=== PATIENT | male | born 1985 | race African-American/Black ===

== ENCOUNTER 2019-04-05 13:47 | Emergency (ER) | payer MEDICAID, OTHER ==
[~2019-04-05] VITALS: Ht 182.9 cm; Wt 71.2 kg
[~2019-04-05 13:47] MED LIST: ALBUTEROL SULF8.5 GM INH; AZITHROMYCIN250 MG ORAL
[2019-04-05] MEDS ORDERED: NKM (14:00)
--- NOTE | 2019-04-05 15:32 | Emergency Room Report ---
History of Present Illness General Chief Complaint: Back Injury Source: Patient Present Illness HPI 33-year-old male presents to the emergency department complaining of 10 out of 10 in severity low back pain x2 days. Status post doing a somersault off of the bed and landed on his heel. Patient denies foot pain he reports he had instantaneous shooting pain in the low back. Patient reports he has been attempting to manage his symptoms by taking OxyContin at home with no relief. Patient reports intermittent shooting pain along with numbness and tingling down the left thigh. Patient denies saddle anesthesia. He denies midline neck pain. Denies hitting his head. Denies gross loss of sensation or gross motor movements of the extremities, incontinence of bowel or bladder. Denies CP, Palpitations, LOC, AMS, dizziness, Changes in Vision, weakness or a sudden severe headache. Allergies: Coded Allergies: No Known Allergies (Unverified , 04/05/15) Patient History Past Medical History: see triage record Past Surgical History: none Pertinent Family History: none Immunizations: UTD Reviewed Nursing Documentation: PMH: Agreed; PSxH: Agreed Nursing Documentation-PMH Past Medical History: No History, Except For Hx Cardiac Problems: No - right eye blindness Hx Hypertension: No - right knee surgery Hx Pacemaker: No Hx Asthma: No Hx COPD: No Hx Diabetes: No Hx Cancer: No Hx Gastrointestinal Problems: No Hx Dialysis: No History Of Psychiatric Problem: No Hx Neurological Problems: No Hx Cerebrovascular Accident: No Hx Seizures: No Review of Systems All Other Systems: negative except mentioned in HPI Physical Exam Vital Signs Date Time Temp Pulse Resp B/P (MAP) Pulse Ox O2 Delivery O2 Flow Rate FiO2 04/05/19 13:55 98.1 67 16 107/71 (83) 97 Room Air Sp02 EP Interpretation: reviewed, normal General Appearance: no apparent distress, alert, GCS 15, non-toxic Head: normocephalic, atraumatic Eyes: bilateral eye normal inspection, bilateral eye PERRL ENT: hearing grossly normal, normal voice Neck: full range of motion, no bony tend Respiratory: lungs clear, normal breath sounds, speaking full sentences Cardiovascular #1: regular rate, rhythm Gastrointestinal: non tender, soft Musculoskeletal: back normal, gait/station normal, normal range of motion, tender - some L-spine midline generalized TTp, TTP to the Bilateral Paraspinal and upper gluteal musculature in the L-Spine area, FROM with exacerbation of pain temporarily in certain flexed positions, no LE weakness, pt. is NVI, no erythema, step-offs or obvious deformity. Neurologic: alert, oriented x3, responsive, motor strength/tone normal, sensory intact, normal gait, speech normal, grossly normal Psychiatric: judgement/insight normal Lymphatic: no adenopathy Medical Decision Making PA Attestation Dr. Bean Is my supervising Physician whom patient management has been discussed with. Diagnostic Impression: Primary Impression: Low back pain Qualified Codes: M54.42 - Lumbago with sciatica, left side Additional Impression: Left sciatic nerve pain ER Course 33-year-old male presents to the emergency department complaining of 10 out of 10 in severity low back pain x2 days. Status post doing a somersault off of the bed and landed on his heel. Patient denies foot pain he reports he had instantaneous shooting pain in the low back. Patient reports he has been attempting to manage his symptoms by taking OxyContin at home with no relief. Patient reports intermittent shooting pain along with numbness and tingling down the left thigh. Patient denies saddle anesthesia. He denies midline neck pain. Denies hitting his head. Denies gross loss of sensation or gross motor movements of the extremities, incontinence of bowel or bladder. Denies CP, Palpitations, LOC, AMS, dizziness, Changes in Vision, weakness or a sudden severe headache. Ddx considered but are not limited to Fracture, dislocation, contusion, Sprain/ Strain/Spasm, Compression fx, Sciatica, Epidural abscess, Neoplastic mets. Vital signs: are WNL, pt. is afebrile H&PE are most consistent with musculoskeletal injury will perform imaging to r/ o fractures/dislocations. ORDERS: - CT L-Spine Non-Con - mildly protruding L5/S1 disk No acute fractures or dislocations. ED INTERVENTIONS: - Soma PO -Tylenol PO Pt. Given Strict ED Precautions regarding symptoms that would indicate cauda equina syndrome. DISCHARGE: At this time pt. is stable for d/c to home. Will provide printed patient care instructions, and any necessary prescriptions. Care plan and follow up instructions have been discussed with the patient prior to discharge. CT/MRI/US Diagnostic Results CT/MRI/US Diagnostic Results : Imaging Test Ordered: CT L-Spine NonCon. Impression " Posterior and slightly left sided disk protrusion on L5/S1, no acute fractures , dislocations or narrowing of the spinal canal. May have some S1 nerve root impingement. " Per official radiology report- Please see report for specific details. Last Vital Signs Date Time Temp Pulse Resp B/P (MAP) Pulse Ox O2 Delivery O2 Flow Rate FiO2 04/05/19 13:55 98.1 67 16 107/71 (83) 97 Room Air Status: improved Disposition: HOME, SELF-CARE Condition: Stable Scripts Ibuprofen* (MOTRIN*) 600 Mg Tablet 600 MG ORAL THREE TIMES A DAY, #30 TAB 0 Refills Prov: Madeline Steiner 04/05/19 Methocarbamol* (METHOCARBAMOL*) 750 Mg Tablet 750 MG ORAL FOUR TIMES A DAY PRN for For Pain, #28 TAB 0 Refills Prov: Madeline Steiner 04/05/19 Referrals: [facility]ERR[facility] (PCP) Departure Forms: Return to Work Return to Work Date: Apr 08, 2019 Work Restrictions: No Heavy Lifting, No Prolonged Standing Other Restrictions: light Duty. May return Sooner if Symptoms have resolved. Return to Full Activity: Apr 15, 2019 Patient Instructions: Back Injury Prevention, Back Pain, Adult, Pinched Nerve Additional Instructions: Take medications as directed. Follow up with an ORTHOPEDIC SPINAL SPECIALIST OR NEUROSURGEON within 3-5 days, even if your symptoms have resolved. --Please review list of primary care clinics, if you do not already have a primary care provider Return sooner to ED if new symptoms occur, or current symptoms become worse. * * Return immediately if you loose feeling/ have numbness or tingling in the groin or rectal areas. If you are suddenly unable to urinate or have a bowel movement. These symptoms can represent a sudden worsening of your condition that is very serious. Do not drink alcohol, drive, or operate heavy machinery while taking Robaxin as this may cause drowsiness. - Please note that this Emergency Department Report was dictated using [employer] technology software, occasionally this can lead to erroneous entry secondary to interpretation by the dictation equipment. Madeline Steiner Apr 05, 2019 15:32
[2019-04-05] MEDS ORDERED: IBUPROFEN600 MG ORAL (15:35)
[2019-04-05] MEDS ORDERED: METHOCARBAMOL750 MG ORAL (15:35)
--- NOTE | 2019-04-05 15:36 | Diagnostic Imaging Report ---
Indications: Left-sided low back pain and left lower extremity tingling and numbness, 2 days after jumping and landing on her heels Technique: Spiral acquisitions obtained through the lumbar spine. Multiplanar reconstructions were generated. No IV contrast utilized. Total dose length product 323 mGycm. CTDIvol(s) 10 mGy. Dose reduction achieved using automated exposure control Comparison: none Findings: There is slight posterior offset of L5 on S1. Otherwise normal bony alignment. No acute fractures. No dislocations. Vertebral body heights are preserved. The disc spaces are preserved. At L5-S1, there is broad-based posterior central and slightly left paracentral disc protrusion. This does not significantly narrow the spinal canal but could impinge slightly on the left S1 nerve root. There is slight narrowing of the left neural foramen due to the bulging disc. At L4-5, there is minimal circumferential annular bulge which does not significantly impinge upon the spinal canal or neural foramina. At the remaining disc levels, no significant disc bulge or protrusion, spinal stenosis, or neural foraminal stenosis. Impression: Broad-based posterior central and left paracentral disc protrusion at L5-S1, which may impinge somewhat upon the left S1 nerve root. Correlate with clinical findings Other findings as noted No acute bony trauma The CT scanner at [facility] is accredited by the [employer] and the scans are performed using protocols designed to limit radiation exposure to as low as reasonably achievable to attain images of sufficient resolution adequate for diagnostic evaluation.
[2019-04-05 16:00] VITALS: BP 111/67
[2019-04-05 16:14] VITALS: BP 111/67
== END 2019-04-05 16:14 | disposition home or self-care (01) ==
LOC: EMR 14:35
DX: M54.42 Lumbago with sciatica, left side (principal); M51.27 Other intervertebral disc displacement, lumbosacral region
CPT/HCPCS: 72131; Z7502; 99284